=== PATIENT | female | born 1970 | race Caucasian/White ===

== ENCOUNTER → 2018-09-17 | Outpatient (CLI) | payer BC | LOC: MC.RAD 09:32 | DX: Z12.31 Encounter for screening mammogram for malignant neoplasm of breast (principal); N64.89 Other specified disorders of breast ==

== ENCOUNTER → 2018-09-28 | Outpatient (CLI) | payer BC | LOC: MC.RAD 07:58 | DX: N63.20 Unspecified lump in the left breast, unspecified quadrant (principal); N64.89 Other specified disorders of breast | CPT/HCPCS: G0279 ==

== ENCOUNTER → 2022-01-15 | Outpatient (CLI) | payer BC | LOC: MC.RAD 15:52 | DX: Z12.31 Encounter for screening mammogram for malignant neoplasm of breast (principal); N63.10 Unspecified lump in the right breast, unspecified quadrant ==

== ENCOUNTER → 2022-01-17 | Outpatient (CLI) | payer BC | LOC: MC.RAD 13:50 | DX: N60.11 Diffuse cystic mastopathy of right breast (principal) ==